=== PATIENT | female | born 1970 | race African-American/Black ===

== ENCOUNTER 2017-03-25 14:03 | Emergency (ER) | payer MEDICARE, MEDICAID ==
[~2017-03-25] VITALS: Ht 167.6 cm; Wt 104.3 kg
[2017-03-25 16:21] VITALS: BP 162/100
== END 2017-03-25 17:10 | disposition home or self-care (01) ==
LOC: ER 14:03
DX: L91.8 Other hypertrophic disorders of the skin (principal); E11.9 Type 2 diabetes mellitus without complications; Z88.0 Allergy status to penicillin
CPT/HCPCS: 11200; 82962

== ENCOUNTER 2018-09-19 08:52 | Emergency (ER) | payer MEDICARE, MEDICAID ==
[~2018-09-19] VITALS: Ht 167.6 cm; Wt 108.9 kg
[2018-09-19 09:04] VITALS: BP 161/84
== END 2018-09-19 10:13 | disposition home or self-care (01) ==
LOC: ER 08:52
DX: J02.9 Acute pharyngitis, unspecified (principal); H60.93 Unspecified otitis externa, bilateral; E11.9 Type 2 diabetes mellitus without complications; I10 Essential (primary) hypertension

== ENCOUNTER 2018-11-03 08:51 | Emergency (ER) | payer MEDICARE, MEDICAID ==
[~2018-11-03] VITALS: Ht 167.6 cm; Wt 108.9 kg
[2018-11-03 09:25] VITALS: BP 135/82
[2018-11-03] MEDS ORDERED: cefTRIAXone SOD 1,000 MG VL IM ONE (10:45)
== END 2018-11-03 11:08 | disposition home or self-care (01) ==
LOC: ER 08:51
DX: J20.9 Acute bronchitis, unspecified (principal); J03.90 Acute tonsillitis, unspecified; E11.9 Type 2 diabetes mellitus without complications; I10 Essential (primary) hypertension
CPT/HCPCS: 71046; 96372; 99283; A6257; J0696

== ENCOUNTER 2018-12-10 20:17 | Emergency (ER) | payer MEDICARE, MEDICAID ==
[~2018-12-10] VITALS: Ht 167.6 cm; Wt 108.9 kg
[2018-12-10 20:31] VITALS: BP 163/85
[2018-12-10] MEDS ORDERED: cefTRIAXone SOD 1,000 MG VL IM ONE (21:15)
[2018-12-10] MEDS ORDERED: ACETAMINOPHEN/CODEINE#3 (300/30mg) TAB PO ONE (21:15)
[2018-12-10] MEDS ORDERED: DexAMETHasone SOD PHOS 10MG/1ML VIAL INJ IM ONE (21:15)
== END 2018-12-10 21:54 | disposition home or self-care (01) ==
LOC: ER 20:17
DX: J06.9 Acute upper respiratory infection, unspecified (principal); J40 Bronchitis, not specified as acute or chronic; I10 Essential (primary) hypertension
CPT/HCPCS: 96372; 99283; J0696; J1100

== ENCOUNTER 2019-08-25 18:03 | Emergency (ER) | payer MEDICARE, MEDICAID ==
[~2019-08-25] VITALS: Ht 167.6 cm; Wt 108.9 kg
[2019-08-25 18:20] VITALS: BP 170/82
[2019-08-25] MEDS ORDERED: ACETAMINOPHEN/CODEINE#3 (300/30mg) TAB PO ONE (21:00)
[2019-08-25] MEDS ORDERED: DexAMETHasone SOD PHOS 10MG/1ML VIAL INJ IM ONE (21:00)
== END 2019-08-25 21:30 | disposition home or self-care (01) ==
LOC: ER 18:03
DX: J06.9 Acute upper respiratory infection, unspecified (principal); I10 Essential (primary) hypertension
CPT/HCPCS: 96372; 99283; J1100

== ENCOUNTER 2022-06-11 09:09 | Emergency (ER) | payer MEDICARE, MEDICAID ==
[~2022-06-11] VITALS: Ht 167.6 cm; Wt 110.0 kg
[2022-06-11] MEDS ORDERED: TRIA0.02 TOP (10:39)
[2022-06-11] MEDS ORDERED: METH750T22 PO (10:39)
[2022-06-11 10:49] VITALS: BP 147/96
== END 2022-06-11 10:41 | disposition home or self-care (01) ==
LOC: ER 09:09
DX: M77.32 Calcaneal spur, left foot (principal); I12.9 Hypertensive chronic kidney disease with stage 1 through stage 4 chronic kidney disease, or unspecified chronic kidney disease; N18.9 Chronic kidney disease, unspecified
CPT/HCPCS: 73630; 82962

== ENCOUNTER 2023-07-20 12:26 | Emergency (ER) | payer MEDICARE, MEDICAID ==
[~2023-07-20] VITALS: Ht 167.6 cm; Wt 106.7 kg
[~2023-07-20 12:26] MED LIST: METH-1182 PO; TRIA0.02 TOP
[2023-07-20 16:39] VITALS: BP 162/81; PULSE 100; RESP 18; TEMP 98.4; O2SAT 98
[2023-07-20] MEDS ORDERED: KETOROLAC TROMETH 60MG/2ML VIAL IM ONE (16:45)
[2023-07-20] MEDS ORDERED: DexAMETHasone SOD PHOS 10MG/1ML VIAL INJ PO ONE (16:45)
[2023-07-20] MEDS ORDERED: cefTRIAXone SOD 1,000 MG VL IM ONE (16:45)
[2023-07-20] MEDS ORDERED: PROM1SOL4 PO (17:07)
== END 2023-07-20 17:18 | disposition home or self-care (01) ==
LOC: ER 12:26
DX: J06.9 Acute upper respiratory infection, unspecified (principal); I12.9 Hypertensive chronic kidney disease with stage 1 through stage 4 chronic kidney disease, or unspecified chronic kidney disease; N18.9 Chronic kidney disease, unspecified; M19.90 Unspecified osteoarthritis, unspecified site; Z98.890 Other specified postprocedural states
CPT/HCPCS: 96372; 99284; J0696; J1100; J1885

== ENCOUNTER 2024-03-09 07:06 | Emergency (ER) | payer MEDICARE, MEDICAID ==
[~2024-03-09] VITALS: Ht 167.6 cm; Wt 106.3 kg
[~2024-03-09 07:06] MED LIST changes: +PROM1SOL4 PO
[2024-03-09] MEDS: IBUPROFEN 800 MG TAB PO ONE (08:06)
[2024-03-09 08:08] LABS: Urine Bacteria FEW /hpf (None Seen); Urine Blood 1+ /uL (Negative); Urine Clarity Turbid (Clear); Urine Color Colorless (Yellow); Urine Protein, UAD 1+ (Negative); Urine Specific Gravity 1.015 (1.001-1.035); Urine Urobilinogen Normal (Negative); Urine WBC 418 /hpf (0 - 5); Urine pH 5.5 (5.0-9.0)
[2024-03-09 08:10] LABS: Basophils # (auto) 0.1 10 ^3/uL (0-0.2); Basophils % (auto) 0.6 % (0.0-2.0); Eosinophils # (auto) 0 10 ^3/uL (0-0.8); Eosinophils % (auto) 0.4 % (0.0-7.0); Hematocrit 29.6 % (36.0-46.0); Lymphocytes # (auto) 0.6 10 ^3/uL (0.4-5.4); Lymphocytes % (auto) 6.1 % (10.0-50.0); Mean Corpuscular Hemoglobin 30.3 pg (28.0-32.0); Mean Corpuscular Hgb Conc. 33.8 g/dL (32.0-36.0); Mean Corpuscular Volume 89.7 fL (80.0-100.0); Monocytes # (auto) 0.5 10 ^3/uL (0-1.3); Monocytes % (auto) 4.9 % (0.0-12.0); Neutrophils # (auto) 8.6 10 ^3/uL (1.6-8.6); Red Cell Distribution Width 15.2 % (11.8-14.3); White Blood Cell 9.8 10^3/uL (4.4-10.8)
[2024-03-09 08:17] LABS: Chloride 111 mmol/L (98-107); Potassium 4.9 mmol/L (3.5-5.1); Sodium 140 mmol/L (136-145)
[2024-03-09 08:18] LABS: Anion Gap 8 (5-15); Calcium 9.9 mg/dL (8.7-10.4); Carbon Dioxide 21 mmol/L (20-30)
[2024-03-09 08:23] LABS: BUN/Creatinine Ratio 15.9 (10.0-20.0); Blood Urea Nitrogen 30 mg/dL (9-23); Glucose 188 mg/dL (74-106)
[2024-03-09] MEDS: SODIUM CHLORIDE 0.9% 1,000 ML IV ONE ×2 (08:54→09:04)
[2024-03-09] MEDS: cefTRIAXone 1GM/50ML D5W 50 ML IV ONE (09:02)
[2024-03-09 09:45] VITALS: BP 111/59; PULSE 92; RESP 16; O2SAT 96
[2024-03-09] MEDS ORDERED: CIPR-173 PO (10:00)
[2024-03-09] MEDS ORDERED: ACET-1080 PO (10:00)
[2024-03-09 10:12] VITALS: TEMP 99.3
== END 2024-03-09 10:35 | disposition home or self-care (01) ==
LOC: ER 07:06
DX: N39.0 Urinary tract infection, site not specified (principal); N10 Acute pyelonephritis; E11.22 Type 2 diabetes mellitus with diabetic chronic kidney disease; I12.9 Hypertensive chronic kidney disease with stage 1 through stage 4 chronic kidney disease, or unspecified chronic kidney disease; N18.9 Chronic kidney disease, unspecified; Z90.49 Acquired absence of other specified parts of digestive tract; Z87.442 Personal history of urinary calculi
CPT/HCPCS: 36415; 74176; 80048; 81001; 85025; 87086; 96365; 99285; J0696; J7030

== ENCOUNTER 2024-07-20 18:04 | Inpatient (IN) | payer MEDICARE, MEDICAID ==
[~2024-07-20] VITALS: Ht 167.6 cm; Wt 115.2 kg
[~2024-07-20 18:04] MED LIST changes: +ACET-1080 PO; +CIPR-173 PO
--- NOTE | 2024-07-20 18:23 | ECG ---
[facility] Test Date: 2024-07-20 Test Time: 18:14:25 Pat Name: MIGUEL ANGEL VARGAS Department: ER Room: [address] [place] [address] Gender: F Fountain Supervisor: MANAV : 1970 Requested By: KARIN BURR Order Number: [id number] Reading MD: Chucky Nelson Measurements Intervals [place] Rate: 78 P: 53 OR: 154 QRS: 10 QRSD: 100 T: 31 QT: 411 QTc: 469 Interpretive Statements Sinus rhythm Low voltage, precordial leads Electronically Signed On 07-26-2024 13:35:43 PST by Chucky Nelson Please click the below link to view image of tracing.
--- NOTE | 2024-07-20 18:33 | ED.PDOC ---
GI ASSESSMENT HPI Comments 53y F who presents to the ED via EMS for chief complaint of abdominal pain. Pt states she has been having abdominal since the past 1 1/2 hours since after she was eating dinner. Pt states her pain in epigastric location radiating to the lower pelvic region diffusely, constant, aching in nature, rating the pain 10/10, with no associated relieving factors. Pt has associated nausea, vomiting chills, but denies fever, cough, dysuria, hematuria or hematemesis, headache or dizziness. Pt otherwise noted to be in distress in the ED. Pt was given Zofran en route with no change in symptoms. Pt denies any other symptoms at this time. Chief Complaint: Abdominal Pain Time Seen by MD: 18:29 Primary Care Provider: YEHUDA Munoz Notes: Nurses Notes, System Integration Engineer Notes, Medications Allergies: Coded Allergies: NO KNOWN ALLERGIES (Unverified , 12/10/18) Home Meds Active Scripts Acetaminophen (Tylenol 8 Hour Arthritis) 650 Mg Tab, 650 MG PO QID, #30 TAB Prov:RIA FELTON 03/09/24 Ciprofloxacin Hcl (Cipro) 500 Mg Tab, 1 TAB PO BID, #20 TAB Prov:RIA FELTON 03/09/24 Promethazine-Dm (Promethazine Dm 6.25-15 mg/5Ml) 1 Jil Jil, 5 ML PO TID for 10 Days, #150 ML 0 Refills Prov:SAMIRA MORALES TOE SEWER 07/20/23 Triamcinolone Acetonide (Triamcinolone Acetonide) 0.025 % Cre, 1 APPLIC TOP BID, #30 GRAMS Prov:RIA FELTON 06/11/22 Methocarbamol (Methocarbamol) 750 Mg Tab, 750 MG PO QHSP PRN, #20 TAB Prov:RIA FELTON 06/11/22 Information Source: Patient, Emergency Med Personnel Mode of Arrival: EMS Brought in by: EMS Timing: Hours Duration: Since onset Prehospital treatment: Treatment (zofran) Quality: Aching, Sharp Vomitus: Food Particles Stool: Normal Severity: Moderate Recent: Possible spoiled food Recent Hx of: None Pain Location: Epigastric, Suprapubic Modifying Factors: Food Associated sign and symptoms: Nausea, Vomiting, Abdominal Pain Past Medical History PAST MEDICAL HISTORY: Arthritis, CKF, DM, HTN, Kidney Stones Surgical History: Cholecystectomy, Surgical History (Other): b/l hip replacement TELECOM FIELD TECHNICIAN History: No Pertinent TELECOM FIELD TECHNICIAN History Family History Family History: Family hx of DM, Family hx of heart bk Social History Smoker: Non-Smoker Alcohol: Denies ETOH Use Drugs: Denies Drug Use Lives In: Home Constitutional: reports: chills, weakness; denies: diaphoresis, fatigue, fever, malaise, sweats, others EENTM: denies: blurred vision, double vision, ear bleeding, ear discharge, ear drainage, ear pain, ear ringing, eye pain, eye redness, hearing loss, mouth pain, mouth swelling, nasal discharge, nose bleeding, nose congestion, nose pain, photophobia, tearing, throat pain, throat swelling, voice changes, others Respiratory: denies: cough, hemoptysis, orthopnea, SOB at rest, shortness of breath, SOB with excertion, stridor, wheezing, others Cardiovascular: denies: chest pain, dizzy spells, diaphoresis, Dyspnea on exertion, edema, irregular heart beat, left arm pain, lightheadedness, palpitations, PND, syncope, others Gastrointestinal: reports: abdominal pain, nausea, vomiting; denies: abdomen distended, blood streaked bowels, constipated, diarrhea, dysphagia, difficulty swallowing, hematemesis, melena, poor appetite, poor fluid intake, rectal bleeding, rectal pain, others Genitourinary: denies: abnormal vagina bleeding, burning, dyspareunia, dysuria, flank pain, frequency, hematuria, incontinence, pain, , vagina discharge, urgency, others Neurological: denies: dizziness, fainting, headache, left sided numbness, left sided weakness, numbness, paresthesia, pre-existing deficit, right sided numbness, right sided weakness, seizure, speech problems, tingling, tremors, weakness, others Musculoskeletal: denies: back pain, gout, joint pain, joint swelling, muscle pain, muscle stiffness, neck pain, others Integumetry: denies: bruises, change in color, change in hair/nails, dryness, laceration, lesions, lumps, rash, wounds, others Allergic/Immunocompromised: denies: Difficulty Healing, Frequent Infections, Hives, Itching, others Hematologic/Lymphatic: denies: anemia, blood clots, easy bleeding, easy bruisi ng, swollen glands, others Endocrine: denies: excessive hunger, excessive sweating, excessive thirst, exce ssive urination, flushing, intolerance to cold, intolerance to heat, unexplained weight gain, unexplained weight loss, others Psychiatric: denies: anxiety, bipolar disorder, depression, hopeless, panic disorder, schizophrenia, sleepless, suicidal, others All Other Systems: Reviewed and Negative Physical Exam General Appearance: Moderate Distress HEENT: Normal ENT Inspection, Pharynx Normal, TMs Normal Neck: Full Range of Motion, Non-Tender, Normal, Normal Inspection Respiratory: Chest Non-Tender, Lungs Clear, No Accessory Muscle Use, No Respiratory Distress, Normal Breath Sounds Cardiovascular: No Edema, No JVD, No Murmur, No Gallop, Normal Peripheral Pulses, Regular Rate/Rhythm Breast Exam: Deferred Gastrointestinal: Diffuse, No Organomegaly, No Pulsatile Mass, Normal Bowel Sounds, Soft, Tenderness Genitalia: Deferred Pelvic: Deferred Rectal: Deferred Extremities: No calf tenderness, Normal capillary refill, No pedal edema Musculoskeletal : Apperance: Normal Neurologic: Alert, public health analyst II-XII nml as Tested, Motor Weakness, Normal Affect, Normal Mood, No Sensory Deficits Cerebellar Function: Normal Reflexes: Normal Skin: Dry, Normal Color, Warm Lymphatic: No Adenopathy Was a procedure done? Was a procedure done?: No GI differential Dx Differential Diagnosis: Esophagitis, Gastritis/PUD, Gastroenteritis, Pancreatitis, UTI, Urolithiasis, Food Poisoning, Stress Ulcer, Kidney Stone X-Ray, Labs, Meds, VS Vital Signs Date Time Temp Pulse Resp B/P (MAP) Pulse Ox O2 Delivery O2 Flow Rate FiO2 07/20/24 18:14 78 07/20/24 18:10 98.3 82 20 121/94 (103) 98 Lab Test 07/20/24 19:17 Range/Units White Blood Count 17.4 H 4.4-10.8 10^3/uL Red Blood Count 3.75 L 4.0-5.20 10^6/uL Hemoglobin 10.8 L 12.2-16.2 g/dL Hematocrit 33.6 L 36.0-46.0 % Mean Corpuscular Volume 89.5 80.0-100.0 fL Mean Corpuscular Hemoglobin 28.9 28.0-32.0 pg Mean Corpuscular Hemoglobin Concent 32.3 32.0-36.0 g/dL Red Cell Distribution Width 14.5 H 11.8-14.3 % Platelet Count 332 140-450 10^3/uL Mean Platelet Volume 7.3 6.9-10.8 fL Neutrophils (%) (Auto) 89.6 H 37.0-80.0 % Lymphocytes (%) (Auto) 6.6 L 10.0-50.0 % Monocytes (%) (Auto) 3.1 0.0-12.0 % Eosinophils (%) (Auto) 0.3 0.0-7.0 % Basophils (%) (Auto) 0.4 0.0-2.0 % Neutrophils # (Auto) 15.6 H 1.6-8.6 10 ^3/uL Lymphocytes # (Auto) 1.1 0.4-5.4 10 ^3/uL Monocytes # (Auto) 0.5 0-1.3 10 ^3/uL Eosinophils # (Auto) 0.1 0-0.8 10 ^3/uL Basophils # (Auto) 0.1 0-0.2 10 ^3/uL Nucleated Red Blood Cells 0.0 % Sodium Level 141 136-145 mmol/L Potassium Level 4.4 3.5-5.1 mmol/L Chloride Level 106 98-107 mmol/L Carbon Dioxide Level 21 20-31 mmol/L Anion Gap 14 5-15 Blood Urea Nitrogen 31 H 9-23 mg/dL Creatinine 1.88 H 0.550-1.02 mg/dL Glomerular Filtration Rate Calc 32 >90 mL/min BUN/Creatinine Ratio 16.5 10.0-20.0 Serum Glucose 214 H 74-106 mg/dL Calcium Level 10.8 H 8.7-10.4 mg/dL Total Bilirubin 0.4 0.2-1.0 mg/dL Aspartate Amino Transferase (AST) 14 13-40 U/L Alanine Aminotransferase (ALT) 19 7-40 U/L Alkaline Phosphatase 83 46-116 U/L Total Protein 7.9 5.7-8.2 g/dL Albumin 5.2 H 3.2-4.8 g/dL Lipase 46 12-53 U/L Exam: CT CT AB PEL WO CON-NO ORAL OR IV IMPRESSION: No evidence of acute abdominopelvic abnormalities. Constipation. Severe degenerative changes of bilateral hips. Large fat containing umbilical hernia. The patient's CBC shows an elevated white blood cell count of 17.4 The rest of the CBC is within limits The chemistry panel shows an elevated BUN and creatinine At this time, the patient was being admitted hospitalist Images Reviewed?: Images reviewed and evaluated by me Time of 1ST Reevaluation: 19:00 Reevaluation 1ST: Unchanged Time of 2ND Reevaluation: 20:00 Reevaluation 2ND: Unchanged Patient Education/Counseling: Diagnosis, Treatment, Prognosis Family Education/Counseling: No Family Present Departure 1 Departure Time of Disposition: 20:00 Impression: Primary Impression: Intractable abdominal pain Additional Impression: Intractable vomiting Disposition: ADMITTED INPATIENT Admit to: Med Surg Condition: Fair Critical Care Note Critical Care Time?: No Stability Stability form required: Yes Unstable for transfer: ED Physician Assesment (Clinical assesment) Heart Score Heart Score: Heart Score Response (Comments) Value History N/A 0 EKG N/A 0 Age N/A 0 Risk Factors N/A 0 Troponin N/A 0 Total 0 I personally scribed for KARIN BURR MD ([email or web address]) on 07/20/24 at 18:32. Electronically submitted by Jazzy Bertrand ([email or web address] ([email or web address])). I personally scribed for KARIN BURR MD ([email or web address]) on 07/20/24 at 19:10. Electronically submitted by Jazzy Berrtand ([email or web address]). KARIN BURR MD Jul 20, 2024 18:32
--- NOTE | 2024-07-20 19:08 | DVH ---
Exam: CT CT AB PEL WO CON-NO ORAL OR IV History: pain Comparison Study: 03/09/2024 TECHNIQUE: Multidetector CT of the abdomen and pelvis without contrast. Axial, coronal and sagittal m ultiplanar reformats were obtained from the axial data set by the technologist. Radiation Dose Information: CT Dose: CTDI volume is 24.43 mGy. Dose-length product is 1442.01 mGy*cm FINDINGS: Bibasilar atelectasis. Mild cardiomegaly. Mild hepatomegaly. Otherwise, liver, spleen, pancreas and adrenal glands are unremarkable. Status po st cholecystectomy. Kidneys, ureters and urinary bladder are unremarkable. Uterus and adnexa are unremarkable. Stomach is unremarkable. Small bowel loops unremarkable. Appendix is unremarkable. Moderate 2 large amount of fecal material within the colon. No evidence of intraperitoneal free air or free fluid. No evidence of aortic aneurysm. [id number] atherosclerotic calcification of the distal aorta an d bilateral iliac arteries. No significant lymphadenopathy. Minimal soft tissue edema. Large fat containing umbilical hernia. Severe degenerative changes bilate ral hips with chronic fracture deformity of the right hip. Calcified granulomas of the bilateral glu teal regions. IMPRESSION: No evidence of acute abdominopelvic abnormalities. Constipation. Severe degenerative changes of bilateral hips. Large fat containing umbilical hernia.
[2024-07-20 19:26] LABS: Basophils # (auto) 0.1 10 ^3/uL (0-0.2); Basophils % (auto) 0.4 % (0.0-2.0); Eosinophils # (auto) 0.1 10 ^3/uL (0-0.8); Eosinophils % (auto) 0.3 % (0.0-7.0); Hematocrit 33.6 % (36.0-46.0); Hemoglobin 10.8 g/dL (12.2-16.2); Lymphocytes # (auto) 1.1 10 ^3/uL (0.4-5.4); Lymphocytes % (auto) 6.6 % (10.0-50.0); Mean Corpuscular Hemoglobin 28.9 pg (28.0-32.0); Mean Corpuscular Hgb Conc. 32.3 g/dL (32.0-36.0); Mean Corpuscular Volume 89.5 fL (80.0-100.0); Monocytes # (auto) 0.5 10 ^3/uL (0-1.3); Monocytes % (auto) 3.1 % (0.0-12.0); Neutrophils # (auto) 15.6 10 ^3/uL (1.6-8.6); Neutrophils % (auto) 89.6 % (37.0-80.0); Platelet Count (auto) 332 10^3/uL (140-450); Red Blood Cells 3.75 10^6/uL (4.0-5.20); Red Cell Distribution Width 14.5 % (11.8-14.3); White Blood Cell 17.4 10^3/uL (4.4-10.8)
[2024-07-20 19:50] LABS: Alanine Aminotransferase 19 U/L (7-40); Alkaline Phosphatase 83 U/L (46-116); Anion Gap 14 (5-15); Aspartate Aminotransferase 14 U/L (13-40); BUN/Creatinine Ratio 16.5 (10.0-20.0); Bilirubin, Total 0.4 mg/dL (0.2-1.0); Carbon Dioxide 21 mmol/L (20-31); Chloride 106 mmol/L (98-107); Lipase 46 U/L (12-53); Potassium 4.4 mmol/L (3.5-5.1); Sodium 141 mmol/L (136-145); Total Protein 7.9 g/dL (5.7-8.2)
[2024-07-20 19:55] LABS: Albumin 5.2 g/dL (3.2-4.8); Blood Urea Nitrogen 31 mg/dL (9-23); Calcium 10.8 mg/dL (8.7-10.4); Glucose 214 mg/dL (74-106)
[2024-07-20] MEDS: MORPHINE SULFATE 4 MG/ML SYR/VIAL IV ONE (20:14)
[2024-07-20] MEDS: PROCHLORPERAZINE EDISYLATE 5 MG/ML 2ML VIAL IV ONE (20:15)
[2024-07-20] MEDS: SODIUM CHLORIDE 0.9% 500 ML IVB ONE (20:16)
[2024-07-20] MEDS: PANTOPRAZOLE 40 MG/10 ML VIAL INJ IV ONE (20:16)
[2024-07-20] MEDS ORDERED: ACETAMINOPHEN 325 MG TAB PO PRN (21:00)
[2024-07-20] MEDS ORDERED: DOCUSATE SOD 100 MG CAP PO PRN (21:00)
[2024-07-20] MEDS ORDERED: NITROGLYCERIN 0.4 MG SL TAB SL PRN (21:00)
[2024-07-20] MEDS ORDERED: MORPHINE SULFATE INJ 2 MG/ml SYRG IV PRN (21:00)
[2024-07-20] MEDS ORDERED: LACTULOSE 20Gm/30ML SOLN PO PRN (21:00)
[2024-07-20 21:30] LABS: Urine Bacteria None Seen /hpf (None Seen)
[2024-07-20] MEDS: SODIUM CHLOR 0.9% PF (SALINE LOCK) 10ML VIAL/SYR IV SCH (21:51)
[2024-07-20 22:21] LABS: Urine Blood Negative /uL (Negative); Urine Clarity Clear (Clear); Urine Color Yellow (Yellow); Urine Hyaline Cast FEW /lpf (0 - 2); Urine Protein, UAD Negative (Negative); Urine Specific Gravity 1.019 (1.001-1.035); Urine Urobilinogen Normal (Negative); Urine WBC 1 /hpf (0 - 5); Urine pH 5.5 (5.0-9.0)
--- NOTE | 2024-07-20 23:12 | DVHHPRES ---
History of Present Illness Resident Creating Document: ESTHER TAVERAS RESIDENT History of Present Illness Patient is 52 years old female with past medical history of hypertension, diabetes mellitus type 2, arthritis, CKD came with a complaint of abdominal pain. As per patient patient ate some seafood outside and started having severe crampy abdominal pain in the afternoon after around 5:00 p.m. today. Pain was 8/10, no radiation, no aggravating or relieving factor. Patient also reported having nausea and vomiting twice mainly food content, no blood. Patient also reported feeling some chills. Patient denied any dysuria, chest pain, shortness of breath, constipation or diarrhea. Initial lab workup revealed leukocytosis WBC 17.4, mild anemia hemoglobin 10.8, elevated creatinine 1.88, BUN 31, blood sugar 214. CT abdomen revealed-No evidence of acute abdominopelvic abnormalities. Constipation. Severe degenerative changes of bilateral hips. Large fat containing umbilical hernia. Past Medical History hypertension, diabetes mellitus type 2, arthritis, CKD Past Surgical History Cholecystectomy, Past Social History Denies smoking/alcoholism/drug abuse, lives with the and son Review of Systems Review of Systems Allergy- NKDA Patient was seen today at the bedside. Cardiovascular- deny acute chest pain or shortness of breath or cough or palpitation Respiratory- denies cough or short of breath or wheezing Gastrointestinal- denies any rectal bleeding, Musculoskeletal-denies acute joint swelling or tenderness or redness Neurological- denies acute dysarthria, dysphagia, change in vision Psychiatry- denies depression or SI or HI Skin- denies acute rash or purpura Allergies: Coded Allergies: NO KNOWN ALLERGIES (Unverified , 12/10/18) Medications Current Medications Medications Dose Ordered Sig/Brittney Route Start Time Stop Time Status Last Admin Dose Admin Sodium Chloride 10 ml Q8HR IV 07/20/24 22:00 07/20/24 21:51 10 ML Ondansetron HCl 4 mg Q4HP PRN IV 07/20/24 21:00 Docusate Sodium 100 mg BIDPRN PRN PO 07/20/24 21:00 Acetaminophen 650 mg Q6HP PRN PO 07/20/24 21:00 Morphine Sulfate 2 mg Q4HPRN PRN IV 07/20/24 21:00 Nitroglycerin 0.4 mg Q5MINP PRN SL 07/20/24 21:00 Morphine Sulfate 2 mg Q30M PRN IV 07/20/24 21:00 Lactulose 30 ml Q6HPRN PRN PO 07/20/24 21:00 Exam Vital Signs Vital Signs Date Time Temp Pulse Resp B/P (MAP) Pulse Ox O2 Delivery O2 Flow Rate FiO2 07/20/24 20:44 88 19 148/76 07/20/24 18:10 98.3 98 Exam General examination- awake, alert, oriented, conversant HEENT- PEERLA, no acute nasal discharge Cardiovascular- S1-S2 audible, rate and rhythm regular, no murmur Respiratory- CTAB, no wheeze or rhonchi Gastrointestinal-tenderness+, bowel sound+. Nondistended Musculoskeletal-no acute joint swelling or tenderness or redness# Lower extremity- no leg edema Neurological- cranial nerves intact, no acute dysarthria or dysphagia Psychiatry- denies depression or SI or HI Skin- no acute rash or purpura Labs/Xrays Labs Test 07/20/24 21:16 07/20/24 19:17 Range/Units Urine Color Yellow Yellow Urine Clarity Clear Clear Urine pH 5.5 5.0-9.0 Urine Specific [place] 1.019 1.001-1.035 Urine Protein Negative Negative Urine Ketones Negative Negative Urine Blood Negative Negative /uL Urine Nitrite Negative Negative Urine Bilirubin Negative Negative Urine Urobilinogen Normal Negative mg/dL Urine Leukocyte Esterase Negative Negative /uL Urine RBC 3 0 - 4 /hpf Urine WBC 1 0 - 5 /hpf Urine Squamous Epithelial Cells Few <5 /hpf Urine Bacteria None seen None Seen /hpf Urine Hyaline Casts Few 0 - 2 /lpf Urine Glucose Normal Normal mg/dL White Blood Count 17.4 H 4.4-10.8 10^3/uL Red Blood Count 3.75 L 4.0-5.20 10^6/uL Hemoglobin 10.8 L 12.2-16.2 g/dL Hematocrit 33.6 L 36.0-46.0 % Mean Corpuscular Volume 89.5 80.0-100.0 fL Mean Corpuscular Hemoglobin 28.9 28.0-32.0 pg Mean Corpuscular Hemoglobin Concent 32.3 32.0-36.0 g/dL Red Cell Distribution Width 14.5 H 11.8-14.3 % Platelet Count 332 140-450 10^3/uL Mean Platelet Volume 7.3 6.9-10.8 fL Neutrophils (%) (Auto) 89.6 H 37.0-80.0 % Lymphocytes (%) (Auto) 6.6 L 10.0-50.0 % Monocytes (%) (Auto) 3.1 0.0-12.0 % Eosinophils (%) (Auto) 0.3 0.0-7.0 % Basophils (%) (Auto) 0.4 0.0-2.0 % Neutrophils # (Auto) 15.6 H 1.6-8.6 10 ^3/uL Lymphocytes # (Auto) 1.1 0.4-5.4 10 ^3/uL Monocytes # (Auto) 0.5 0-1.3 10 ^3/uL Eosinophils # (Auto) 0.1 0-0.8 10 ^3/uL Basophils # (Auto) 0.1 0-0.2 10 ^3/uL Nucleated Red Blood Cells 0.0 % Sodium Level 141 136-145 mmol/L Potassium Level 4.4 3.5-5.1 mmol/L Chloride Level 106 98-107 mmol/L Carbon Dioxide Level 21 20-31 mmol/L Anion Gap 14 5-15 Blood Urea Nitrogen 31 H 9-23 mg/dL Creatinine 1.88 H 0.550-1.02 mg/dL Glomerular Filtration Rate Calc 32 >90 mL/min BUN/Creatinine Ratio 16.5 10.0-20.0 Serum Glucose 214 H 74-106 mg/dL Calcium Level 10.8 H 8.7-10.4 mg/dL Total Bilirubin 0.4 0.2-1.0 mg/dL Aspartate Amino Transferase (AST) 14 13-40 U/L Alanine Aminotransferase (ALT) 19 7-40 U/L Alkaline Phosphatase 83 46-116 U/L Total Protein 7.9 5.7-8.2 g/dL Albumin 5.2 H 3.2-4.8 g/dL Lipase 46 12-53 U/L Assessment/Plan Assessment/Plan # acute abdominal pain likely due to acute gastroenteritis/colitis -leukocytosis WBC 17.4 -continue ceftriaxone 1 g IV daily -continue metronidazole 500 mg IV q.8h -continue IV fluid as prescribed # suspected acute gastroenteritis -abdominal pain, nausea, vomiting --leukocytosis WBC 17.4 -continue ceftriaxone 1 g IV daily -continue metronidazole 500 mg IV q.8h -continue IV fluid as prescribed # CKD stage IIIB, no FELIBERTO -avoid dehydration and nephrotoxic drugs # hypertension -IV hydralazine 10 mg q.6h p.r.n. -monitor BP # diabetes mellitus type 2 -pending HGB A1c -continue insulin sliding scale as prescribed #Arthritis -pain medication as prescribed # obesity, BMI 38.8 -patient is counseled about weight reduction, physical activity, low-fat diet # elevated calcium -continue IV fluid as prescribed Goals of care/advance care planning; FULL CODE; discussed with the patient >15 minutes PUD prophylaxis: Pantoprazole DVT prophylaxis: Lovenox Plan discussed with Dr. Bearden, nursing staff, patient Total time spent on patient evaluation, chart review, assessment and plan, discussion discussion >30 minutes Plan discussed with: Patient Plan discussed with: Patient, Other (RN) My Orders Orders - ESTHER TAVERAS RESIDENT Procedure Category Date Status Time Admit ADMIT 07/20/24 Transmitted 20:46 Code Status CODE 07/20/24 Transmitted 20:46 Sodium Chloride Lock PHA 07/20/24 In Process (Saline Lock Ns) 22:00 Ondansetron Hcl PHA 07/20/24 In Process (Zofran) 21:00 Docusate Sodium PHA 07/20/24 In Process Capsule (Colace 21:00 Complete Blood Count LAB 07/21/24 Verified 04:00 Comprehensive LAB 07/21/24 Verified Metabolic Panel 04:00 Acetaminophen Tablet PHA 07/20/24 In Process (Tylenol Tablet) 21:00 Morphine Sulfate PHA 07/20/24 In Process Injection 21:00 Nitroglycerin PHA 07/20/24 In Process Sublingual (Ntrostat 21:00 Morphine Sulfate PHA 07/20/24 In Process Injection 21:00 Oxygen By Nasal RT 07/20/24 Transmitted Cannula 20:46 Stat Ekg For Chest JAC 07/20/24 In Process Pain 20:46 Notify Of Changes JAC 07/20/24 In Process From Base 20:46 Resident Care Aide For JAC 07/20/24 In Process 24 Hours 20:46 Emergency Dysrhythmia JAC 07/20/24 In Process Protocol 20:46 Rhythm Strips Once JAC 07/20/24 In Process Every Shift 20:46 Lactulose Oral PHA 07/20/24 In Process 21:00 Date of Service: Jul 20, 2024 Billing Provider: OBDULIA BEARDEN MD Common Visit Codes: [id number] INP/OBS CARE (HIGH) ESTHER TAVERAS RESIDENT Jul 20, 2024 23:12 OBDULIA BEARDEN MD Jul 21, 2024 08:02
[2024-07-20 23:37] VITALS: BP 159/99; PULSE 108; RESP 18; TEMP 98.7; O2SAT 98
[2024-07-21] VITALS (9 sets, daily range): BP systolic 105–159; BP diastolic 64–99; PULSE 70–109; RESP 16–20; TEMP 98.2–99.7; O2SAT 87–98
[2024-07-21] MEDS: metroNIDAZOLE 500MG/100ML 100 ML IV ONE (00:15)
[2024-07-21] MEDS: SODIUM CHLORIDE 0.9% 1,000 ML IV SCH ×2 (00:16→03:30)
[2024-07-21] MEDS: cefTRIAXone 1GM/50ML D5W 50 ML IV ONE (00:16)
[2024-07-21] MEDS: SODIUM CHLORIDE 0.9% 500 ML IV ONE (00:17)
[2024-07-21] MEDS: MORPHINE SULFATE INJ 2 MG/ml SYRG IV PRN (00:47)
[2024-07-21] MEDS: ONDANSETRON HCL 4 MG/2 ML VIAL IV PRN (00:54)
[2024-07-21] MEDS ORDERED: DEXTROSE (50%) 50ML SYRG IV PRN (01:45)
[2024-07-21] MEDS: ENOXAPARIN SOD 40 MG/0.4 ML SYRINGE SC SCH (02:00)
[2024-07-21] MEDS: LACTULOSE 20Gm/30ML SOLN PO ONE (03:19)
[2024-07-21] MEDS: ENOXAPARIN SOD 40 MG/0.4 ML SYRINGE SC ONE (03:21)
[2024-07-21 06:02] LABS: Basophils # (auto) 0 10 ^3/uL (0-0.2); Basophils % (auto) 0.2 % (0.0-2.0); Eosinophils # (auto) 0 10 ^3/uL (0-0.8); Eosinophils % (auto) 0.1 % (0.0-7.0); Hematocrit 29.2 % (36.0-46.0); Hemoglobin 9.5 g/dL (12.2-16.2); Lymphocytes # (auto) 0.9 10 ^3/uL (0.4-5.4); Lymphocytes % (auto) 6.1 % (10.0-50.0); Mean Corpuscular Hemoglobin 29.1 pg (28.0-32.0); Mean Corpuscular Hgb Conc. 32.7 g/dL (32.0-36.0); Mean Corpuscular Volume 88.9 fL (80.0-100.0); Monocytes # (auto) 0.5 10 ^3/uL (0-1.3); Monocytes % (auto) 3.3 % (0.0-12.0); Neutrophils # (auto) 12.8 10 ^3/uL (1.6-8.6); Neutrophils % (auto) 90.3 % (37.0-80.0); Platelet Count (auto) 272 10^3/uL (140-450); Red Blood Cells 3.28 10^6/uL (4.0-5.20); Red Cell Distribution Width 14.2 % (11.8-14.3); White Blood Cell 14.2 10^3/uL (4.4-10.8)
[2024-07-21] MEDS: ACCU-CHEK COMFORT CURVE STRIP VI SCH (06:12)
[2024-07-21] MEDS: metroNIDAZOLE 500MG/100ML 100 ML IV SCH (06:12)
[2024-07-21 06:26] LABS: Alanine Aminotransferase 16 U/L (7-40); Albumin 4.7 g/dL (3.2-4.8); Alkaline Phosphatase 73 U/L (46-116); Anion Gap 14 (5-15); Aspartate Aminotransferase 12 U/L (13-40); BUN/Creatinine Ratio 18.2 (10.0-20.0); Bilirubin, Total 0.5 mg/dL (0.2-1.0); Blood Urea Nitrogen 27 mg/dL (9-23); Calcium 10.2 mg/dL (8.7-10.4); Carbon Dioxide 20 mmol/L (20-31); Chloride 107 mmol/L (98-107); Glucose 175 mg/dL (74-106); Magnesium 1.7 mg/dL (1.6-2.6); Potassium 4.7 mmol/L (3.5-5.1); Sodium 141 mmol/L (136-145); Total Protein 7.1 g/dL (5.7-8.2)
[2024-07-21] MEDS: InsuLIN REG 1unit/0.01ml Soln (100units/ml) SC SCH (06:28)
[2024-07-21] MEDS ORDERED: LACTULOSE 20Gm/30ML SOLN PO PRN (06:30)
[2024-07-21] MEDS: PANTOPRAZOLE 40 MG/10 ML VIAL INJ IV SCH (08:40)
[2024-07-21] MEDS: PROCHLORPERAZINE EDISYLATE 5 MG/ML 2ML VIAL IV PRN (08:41)
--- NOTE | 2024-07-21 10:48 | DVHPNRES ---
Progress Note Date Seen: Jul 21, 2024 Resident Creating Document: LOVE JARRELLNARCISO RESIDENT Medical Necessity Reason Pt with a Central, PICC or Fol: No Subjective Review of Systems Patient is a 53 yo male with a past medical history of T2DM, HTN, osteoarthritis of the hip presented to the ED with chief complaint Acute abdominal pain, nausea and vomiting for a few hours before presentation. patient reported that she was at a family gathering and had food following which after about 1-1.5 hrs he started having shaking, diffuse abdominal pain with nausea and vomiting. reported eating turkey, shrimps made at home. patient reports about 3-4 episodes vomiting which mostly had undigested food she ate, no blood in vomitus, last 2 episodes of vomting were yellowish in color. patient does not report of fever, diarrhoea, rash, no motor or sensory deficiets. Patient on admission had stable vitals with blood pressure and heart rate WNL. CBC showed elevated WBC count with left shjft and BMP showed Increased creatine with acutely low GFR. CT abdomen pelvis without contrast was done which showed No evidence of acute abdominopelvic abnormalities.Constipation.Severe degenerative changes of bilateral hips.Large fat containing umbilical hernia. Past medical history : as per HPI Past surgical history: Cholecystectomy, Social history: Lives with the family and denies smoking, alcohol, drug use Home medications: Tradjenta 5mg daily, losartan 100 mg qd, hydralazine 50 bid, insulin 30 U hs Review of systems Patient seen and examined at the bedside. Patient alert and oriented x4. Patient reported diffuse crampy abdominal pain severe 7/10 intensity, nausea with dry heaving. Vitals - BP stable, pulse regular rate and rhythm. passed stool, regular in consistency, no gross blood in stool. Stool sent for culture, WBC and stool occult blood. WBC came down and serum creatinine coming down. Objective vital signs Vital Sign Date Time Temp Pulse Resp B/P (MAP) Pulse Ox O2 Delivery O2 Flow Rate FiO2 07/21/24 09:00 99.1 97 20 126/66 (86) 87 99.1 07/21/24 01:46 Room Air* 0 21 Total Intake and Output 07/20/24 07/20/24 07/21/24 15:00 23:00 07:00 Intake Total 600 ml Output Total 200 ml Balance 400 ml medications Current Medications Medications Dose Ordered Sig/Brittney Route Start Time Stop Time Status Last Admin Dose Admin Sodium Chloride 10 ml Q8HR IV 07/20/24 22:00 07/21/24 05:38 10 ML Ondansetron HCl 4 mg Q4HP PRN IV 07/20/24 21:00 07/21/24 00:54 4 MG Docusate Sodium 100 mg BIDPRN PRN PO 07/20/24 21:00 Acetaminophen 650 mg Q6HP PRN PO 07/20/24 21:00 Morphine Sulfate 2 mg Q4HPRN PRN IV 07/20/24 21:00 07/21/24 04:26 2 MG Nitroglycerin 0.4 mg Q5MINP PRN SL 07/20/24 21:00 Morphine Sulfate 2 mg Q30M PRN IV 07/20/24 21:00 Ceftriaxone Sodium 50 ml @ 100 mls/hr DAILY@2300 IV 07/21/24 23:00 Metronidazole 100 ml @ 100 mls/hr Q8H IV 07/21/24 07:00 07/21/24 06:12 100 MLS/HR Pantoprazole Sodium 40 mg DAILY IV 07/21/24 10:00 07/21/24 08:40 40 MG Diagnostic Test (Pha) 1 strip ACHS 07/21/24 07:00 07/21/24 06:12 1 STRIP Insulin Human Regular ACHS SC 07/21/24 07:00 07/21/24 06:28 3 UNITS Dextrose 50 ml UD PRN IV 07/21/24 01:45 Enoxaparin Sodium 40 mg DAILY@0200 SC 07/21/24 02:00 Sodium Chloride 1,000 ml @ 120 mls/hr Q8H20M IV 07/21/24 01:45 07/21/24 03:30 120 MLS/HR Lactulose 30 ml DAILY PRN PO 07/21/24 06:30 Prochlorperazine Edisylate 10 mg Q6HP PRN IV 07/21/24 07:15 07/21/24 08:41 10 MG Examination Physical Examination Gen - no pallor, no icterus, no cyanosis, no clubbing, no LAD, no edema . Skin - Patients skin is warm and dry HEENT - normocephalic, atraumatic, dry mucous membranes. Neck - full ROM, no LAD, no JVD Pulmonary - B/L vesicular breath sounds. no crackles , no wheezing, no stridor. cardiovascular - normal S1,S2 heard. no murmurs heard. peripheral pulses normal radial 2+, pedal 2+. capillary refill normal <2 secs. GI - soft abdomen with mild tenderness to palpation in the periumbilical region . no hepatospleenomegaly. Bowel sounds normoactive Neurological - Patient is A/O X 3 . Bilateral upper extremity strength 5/5, bilateral lower extremity strength 5/5, no facial droop, normal speech, no tremor, no sensory deficiets. laboratory and microbiology Laboratory Tests 07/21/24 05:42 Test 07/21/24 05:42 Range/Units Serum Glucose 175 H 74-106 mg/dL Labs and/or images reviewed: Labs reviewed by me, Image(s) reviewed by me Problem List/Assessment/Plan Problem List/Assessment/Plan Assessment and plan # Acute intractable abdominal pain # Acute intractable nausea and vomiting # Acute gastroenteritis likely d/t infectious etiology # Leukocytosis with left shift # SIRS negative - CT abdomen pelvis without contrast showed no acute intraabdominal abnormalities - stool occult blood and stool WBC negative - IV fluids - ceftriaxone and metronidazole IV - Zofran 4mg prn and prochlorperazine 10mg prn for nausea/vomiting - Clear liquid diet - Dicyclomine prn for crampy abdominal pain # FELIBERTO on CKD likely prerenal hemodynamically mediated - serum creatinine decreasing - patient had multiple episodes of vomiting - On IV fluids # H/o hypertension Currently blood pressure slightly low, held home medications - on hydralazine prn if SBP>150mmhg # Uncontrolled T2DM - Hba1c- 6.8% - On mild ISS - At home patient is on insulin 30U hs, started on 18U hs in hospital # Anemia, normocytic normochromic - monitor H&H - Retic count pending -no signs/symptoms of active bleeding Goals of care discussed for 20 minutes; full code Plan discussed with Plan discussed with: Patient (RN ( Azucena )), Other (Nurse) My Orders My Orders Orders - RIAN JARRELL RESIDENT Procedure Category Date Status Time Urine Sodium LAB 07/21/24 Logged 07:32 Urine LAB 07/21/24 Logged Protein/Creatinine Npo (Nothing By DIET 07/21/24 Transmitted Mouth) Diet Breakfast Addendum Addendum Addendum I was physically present for the turner portions of the service provided to patient by THE RESIDENT. I have reviewed the documentation, discussed the case with resident and agree with the resident's documentation except as noted. Also the patient's clinical case was discussed with the patient's nurse. This medical document was created using an electronic medical record system with computerized dictation system. Although this document has been carefully reviewed, there might still be some phonetic and typographical errors. These areas are purely typographical due to imperfections of the software programs, and do not reflect any compromise in the patient's medical care. Late signature. Date of Service: Jul 21, 2024 Billing Provider: CORTNEY WORRELL MD Common Visit Codes: 78725-[id number] INP/OBS CARE(HIGH) Secondary Visit Codes: 64158-[id number] CARE PLAN 30 MINUTES (20 minutes) RIAN JARRELL RESIDENT Jul 21, 2024 10:48 CORTNEY WORRELL MD Jul 23, 2024 06:01
[2024-07-21] MEDS: DICYCLOMINE HCL (10MG/ML) 2 ML AMPULE IM ONE (11:24)
[2024-07-21] MEDS ORDERED: LINA5TAB PO (15:27)
[2024-07-21] MEDS ORDERED: ATOR10TA52 PO (15:27)
[2024-07-21] MEDS ORDERED: LACT10SO59 PO (15:27)
[2024-07-21] MEDS ORDERED: HYDR50TA47 PO (15:27)
[2024-07-21] MEDS ORDERED: INSU1INJ14 SC (15:27)
[2024-07-21] MEDS ORDERED: LOSA-535 PO (15:27)
[2024-07-21] MEDS ORDERED: SEMA2INJ3 SC (15:27)
[2024-07-21] MEDS ORDERED: METF-371 PO (15:27)
[2024-07-21] MEDS ORDERED: HYDR-4795 PO (15:27)
[2024-07-21] MEDS ORDERED: DICYCLOMINE HCL 10 MG CAP PO PRN (22:00)
[2024-07-21] MEDS: INSULIN LANTUS (GLARGINE) 1 /0.01ml (100units/ml) SC SCH (23:00)
[2024-07-21] MEDS: cefTRIAXone 1GM/50ML D5W 50 ML IV SCH (23:30)
[2024-07-22 05:00] VITALS: BP 130/72; PULSE 78; RESP 18; TEMP 98.3; O2SAT 93
[2024-07-22 05:50] LABS: Basophils # (auto) 0.1 10 ^3/uL (0-0.2); Basophils % (auto) 0.5 % (0.0-2.0); Eosinophils # (auto) 0 10 ^3/uL (0-0.8); Eosinophils % (auto) 0.1 % (0.0-7.0); Lymphocytes # (auto) 1.2 10 ^3/uL (0.4-5.4); Lymphocytes % (auto) 7.7 % (10.0-50.0); Mean Corpuscular Hemoglobin 28.6 pg (28.0-32.0); Mean Corpuscular Hgb Conc. 32.1 g/dL (32.0-36.0); Mean Corpuscular Volume 88.9 fL (80.0-100.0); Monocytes # (auto) 0.7 10 ^3/uL (0-1.3); Monocytes % (auto) 4.8 % (0.0-12.0); Neutrophils # (auto) 13.3 10 ^3/uL (1.6-8.6); Neutrophils % (auto) 86.9 % (37.0-80.0); Platelet Count (auto) 280 10^3/uL (140-450); Red Blood Cells 3.49 10^6/uL (4.0-5.20); Red Cell Distribution Width 14.8 % (11.8-14.3); White Blood Cell 15.3 10^3/uL (4.4-10.8)
[2024-07-22 06:06] LABS: Chloride 106 mmol/L (98-107); Potassium 4.1 mmol/L (3.5-5.1); Sodium 141 mmol/L (136-145)
[2024-07-22 06:07] LABS: Anion Gap 14 (5-15); Carbon Dioxide 21 mmol/L (20-31)
[2024-07-22 06:08] LABS: Calcium 10.1 mg/dL (8.7-10.4)
[2024-07-22 06:13] LABS: BUN/Creatinine Ratio 13.9 (10.0-20.0); Blood Urea Nitrogen 20 mg/dL (9-23); Glucose 172 mg/dL (74-106)
[2024-07-22 06:15] LABS: Phosphorus 2.8 mg/dL (2.4-5.1)
[2024-07-22 08:00] VITALS: PULSE 93; RESP 20; O2SAT 94
[2024-07-22 09:00] VITALS: BP 117/65; PULSE 93; RESP 20; TEMP 98.8; O2SAT 94
[2024-07-22] MEDS ORDERED: AUG875T PO (11:56)
[2024-07-22] MEDS ORDERED: ZOFR4T PO (11:56)
[2024-07-22] MEDS ORDERED: DICY10CA PO (11:56)
[2024-07-22 12:30] VITALS: BP 117/65; PULSE 93; RESP 20; TEMP 98.8; O2SAT 94
--- NOTE | 2024-07-22 12:44 | DVHDSRES ---
Discharge Summary Date of Admission Resident Creating Document: OSORIO BRUNNER RESIDENT Jul 20, 2024 at 20:53 Date of Discharge: Jul 22, 2024 Admitting Diagnosis Abdominal pain with nausea and vomiting Labs/Diagnostic Data: Laboratory Results Test 07/22/24 11:04 07/22/24 05:35 07/21/24 11:00 07/21/24 08:20 POC Glucose 186 mg/dl (70-106) White Blood Count 15.3 10^3/uL (4.4-10.8) Red Blood Count 3.49 10^6/uL (4.0-5.20) Hemoglobin 10.0 g/dL (12.2-16.2) Hematocrit 31.0 % (36.0-46.0) Mean Corpuscular Volume 88.9 fL (80.0-100.0) Mean Corpuscular Hemoglobin 28.6 pg (28.0-32.0) Mean Corpuscular Hemoglobin Concent 32.1 g/dL (32.0-36.0) Red Cell Distribution Width 14.8 % (11.8-14.3) Platelet Count 280 10^3/uL (140-450) Mean Platelet Volume 7.3 fL (6.9-10.8) Neutrophils (%) (Auto) 86.9 % (37.0-80.0) Lymphocytes (%) (Auto) 7.7 % (10.0-50.0) Monocytes (%) (Auto) 4.8 % (0.0-12.0) Eosinophils (%) (Auto) 0.1 % (0.0-7.0) Basophils (%) (Auto) 0.5 % (0.0-2.0) Neutrophils # (Auto) 13.3 10 ^3/uL (1.6-8.6) Lymphocytes # (Auto) 1.2 10 ^3/uL (0.4-5.4) Monocytes # (Auto) 0.7 10 ^3/uL (0-1.3) Eosinophils # (Auto) 0 10 ^3/uL (0-0.8) Basophils # (Auto) 0.1 10 ^3/uL (0-0.2) Nucleated Red Blood Cells 0.0 % Reticulocyte Count (auto) 1.56 % (0.5-1.5) Sodium Level 141 mmol/L (136-145) Potassium Level 4.1 mmol/L (3.5-5.1) Chloride Level 106 mmol/L (98-107) Carbon Dioxide Level 21 mmol/L (20-31) Anion Gap 14 (5-15) Blood Urea Nitrogen 20 mg/dL (9-23) Creatinine 1.44 mg/dL (0.550-1.02) Glomerular Filtration Rate Calc 43 mL/min (>90) BUN/Creatinine Ratio 13.9 (10.0-20.0) Serum Glucose 172 mg/dL (74-106) Calcium Level 10.1 mg/dL (8.7-10.4) Phosphorus Level 2.8 mg/dL (2.4-5.1) Lactate Dehydrogenase 189 U/L (120-246) Stool Occult Blood Negative (Negative) Stool Occult Blood Sample #3 (Negative) Stool for White Cells None seen Test 07/21/24 05:42 07/20/24 21:16 07/20/24 19:17 Hemoglobin A1c 6.8 % A1C (<5.7) Lactic Acid Level 1.0 mmol/L (0.4-2.0) Magnesium Level 1.7 mg/dL (1.6-2.6) Total Bilirubin 0.5 mg/dL (0.2-1.0) Aspartate Amino Transferase (AST) 12 U/L (13-40) Alanine Aminotransferase (ALT) 16 U/L (7-40) Alkaline Phosphatase 73 U/L (46-116) Total Protein 7.1 g/dL (5.7-8.2) Albumin 4.7 g/dL (3.2-4.8) Parathyroid Hormone (Intact) 121.0 pg/mL (18.4-80.1) Urine Color Yellow (Yellow) Urine Clarity Clear (Clear) Urine pH 5.5 (5.0-9.0) Urine Specific [place] 1.019 (1.001-1.035) Urine Protein Negative (Negative) Urine Ketones Negative (Negative) Urine Blood Negative /uL (Negative) Urine Nitrite Negative (Negative) Urine Bilirubin Negative (Negative) Urine Urobilinogen Normal mg/dL (Negative) Urine Leukocyte Esterase Negative /uL (Negative) Urine RBC 3 /hpf (0 - 4) Urine WBC 1 /hpf (0 - 5) Urine Squamous Epithelial Cells Few /hpf (<5) Urine Bacteria None seen /hpf (None Seen) Urine Hyaline Casts Few /lpf (0 - 2) Urine Glucose Normal mg/dL (Normal) Lipase 46 U/L (12-53) Other Laboratory Tests 07/22/24 05:35 Brief Hx & Hospital Course: Patient is a 53 yo male with a past medical history of T2DM, HTN, osteoarthritis of the hip presented to the ED with chief complaint Acute abdominal pain, nausea and vomiting for a few hours before presentation. patient reported that she was at a family gathering and had food following which after about 1-1.5 hrs he started having shaking, diffuse abdominal pain with nausea and vomiting. reported eating turkey, shrimps made at home. patient reports about 3-4 episodes vomiting which mostly had undigested food she ate, no blood in vomitus, last 2 episodes of vomiting were yellowish in color. patient does not report of fever, diarrhoea, rash, no motor or sensory deficiets. Patient on admission had stable vitals with blood pressure and heart rate WNL. CBC showed elevated WBC count with left shift and BMP showed Increased creatine with acutely low GFR. CT abdomen pelvis without contrast was done which showed No evidence of acute abdominopelvic abnormalities.Constipation.Severe degenerative changes of bilateral hips.Large fat containing umbilical hernia. Past medical history : as per HPI Past surgical history: Cholecystectomy, Social history: Lives with the family and denies smoking, alcohol, drug use Home medications: Tradjenta 5mg daily, losartan 100 mg qd, hydralazine 50 bid, insulin 30 U hs On initial assessment, patient seen and examined at the bedside. Patient alert and oriented x4. Patient reported diffuse crampy abdominal pain severe 7/10 intensity, nausea with dry heaving. Vitals - BP stable, pulse regular rate and rhythm. passed stool, regular in consistency, no gross blood in stool. Stool sent for culture, WBC and stool occult blood. WBC came down and serum creatinine coming down. CT abdomen revealed constipation, no acute abnormality. On subsequent assessment, patient has had significant clinical improvement from admission, she denied any significant chest pain, shortness of breath, abdominal pain, nausea, vomiting, dizziness, she is currently tolerating diet, ambulatory. Physical examination on the day of discharge: General: Awake, alert, comfortable appearing, in no acute distress. HEENT: Head is normocephalic and atraumatic. Pupils are equal, round, and reactive to light. Extraocular muscles are intact. No nasal discharge. No facial trauma. Intraoral exam shows moist mucous membranes with no tonsillar enlargement or exudate. Neck: Supple with no cervical lymphadenopathy No meningismus. No goiter. Heart: Regular rate without murmur, rub, or gallop. Lungs: Equal breath sounds bilaterally with no wheezing, rales, or rhonchi. There is no chest wall tenderness or instability. Abdomen: No external sign of injury. Bowel sounds are present. Abdomen is soft, nontender. No rebound, no guarding, no rigidity. There are no palpable masses. There is no flank pain on exam. Extremities: Strong peripheral pulses. There is no clubbing, no cyanosis, and no edema. Skin: No rash. Neurologic: Cranial nerves II-XII intact without motor, sensory, or cerebellar deficit, no asterixis. Discharge plan: Patient will be DC home and continue home medications as prescribed. She will continue taking Augmentin 875 mg p.o. b.i.d. for five days. Continue taking Zofran p.r.n.. Continue taking dicyclomine p.o. p.r.n.. Scheduled follow-up follow up with the discharge clinic this upcoming Wednesday with Dr. Regalado. We extensively explained signs of alarm to the patient and today returned to the ER if any. Patient verbalized understanding agreed with this plan, we spent over 35 minutes explained the plan. Case was discussed with Dr. Worrell Operations or Procedures [place] [id number] Ph: [phone] DIAGNOSTIC IMAGING Diagnostic Imaging Report : [id number] Signed PATIENT: MIGUEL ANGEL VARGASACCT: [id number] UNIT: [id number] : 1970 LOC: ER ROOM / BED: / AGE / SEX: 53 / F ADM STATUS: REG ER SERVICE 08 ORDERING PHYSICIAN: KARIN BURR MD PROCEDURE(s): ABPL - CT AB PEL WO CON-NO ORAL OR IV REASON: pain ORDER NUMBER(s): [id number], ACCESSION NUMBER(s): [id number] Exam: CT CT AB PEL WO CON-NO ORAL OR IV History: pain Comparison Study: 03/09/2024 TECHNIQUE: Multidetector CT of the abdomen and pelvis without contrast. Axial, coronal and sagittal multiplanar reformats were obtained from the axial data set by the technologist. Radiation Dose Information: CT Dose: CTDI volume is 24.43 mGy. Dose-length product is 1442.01 mGy*cm FINDINGS: Bibasilar atelectasis. Mild cardiomegaly. Mild hepatomegaly. Otherwise, liver, spleen, pancreas and adrenal glands are unremarkable. Status post cholecystectomy. Kidneys, ureters and urinary bladder are unremarkable. Uterus and adnexa are unremarkable. Stomach is unremarkable. Small bowel loops unremarkable. Appendix is unremarkable. Moderate 2 large amount of fecal material within the colon. No evidence of intraperitoneal free air or free fluid. No evidence of aortic aneurysm. [id number] atherosclerotic calcification of the distal aorta and bilateral iliac arteries. No significant lymphadenopathy. Minimal soft tissue edema. Large fat containing umbilical hernia. Severe degenerative changes bilateral hips with chronic fracture deformity of the right hip. Calcified granulomas of the bilateral gluteal regions. IMPRESSION: No evidence of acute abdominopelvic abnormalities. Constipation. Severe degenerative changes of bilateral hips. Large fat containing umbilical hernia. ATED BY: DALILA SANTANA DO DICTATED DATE/TIME: 07/20/241905 SIGNED BY: DALILA SANTANA DO SIGNED DATE/TIME: 07/20/241905 CC: Condition at Discharge: Stable Final Diagnosis/Problems List # Acute intractable abdominal pain # Acute intractable nausea and vomiting # Sepsis due to acute gastroenteritis likely d/t infectious etiology # Leukocytosis with left shift # FELIBERTO on CKD likely prerenal hemodynamically mediated # H/o hypertension # Uncontrolled T2DM # Anemia, normocytic normochromic Discharge Disposition: Home Discharge Instruct/Medications Diet: Regular Activity: No Restrictions, As Tolerated Follow Up/Referral: f/u with Dr. Regalado in d/c clinic Wednesday July 24, 2024 Medications: continue home meds as prescribed Discharge Statement: "Patient was advised to return to the ER or call 911 if any headaches, dizziness, shortness of breath, chest pain, abdominal pain, bleeding, fevers, or worsening of medical condition. Patient was counseled about treatment plan, medications, possible side effects, patientverbalized understanding. All questions were answered to the best of my ability. This discharge took greater then 30 minutes in planning, reviewing documentation, counseling the patient, and discussing with other team members." ASSESSMENT ASSESSMENT Assessment gastroenteritis Addendum Addendum Addendum I was physically present for the turner portions of the service provided to patient by THE RESIDENT. I have reviewed the documentation, discussed the case with resident and agree with the resident's documentation except as noted. Also the patient's clinical case was discussed with the patient's nurse. This medical document was created using an electronic medical record system with computerized dictation system. Although this document has been carefully reviewed, there might still be some phonetic and typographical errors. These areas are purely typographical due to imperfections of the software programs, and do not reflect any compromise in the patient's medical care. Late signature. Date of Service: Jul 22, 2024 Billing Provider: CORTNEY WORRELL MD Common Visit Codes: 27510-FOA/OBS DISCH DAY >30min OSORIO BRUNNER RESIDENT Jul 22, 2024 12:44 CORTNEY WORRELL MD Jul 23, 2024 06:04
[2024-07-22 13:01] VITALS: BP 126/87; PULSE 104; RESP 18; TEMP 98.7; O2SAT 95
== END 2024-07-22 13:32 | disposition home or self-care (01) | DRG 871 ==
LOC: EDBD 18:04 → ER 18:04 → OVERFLOW 20:53 → EAST 23:30
PROVIDERS: ADMIT Internal Medicine; ATTEND Internal Medicine
DX: A41.9 Sepsis, unspecified organism (principal); N17.0 Acute kidney failure with tubular necrosis; A04.9 Bacterial intestinal infection, unspecified; I12.9 Hypertensive chronic kidney disease with stage 1 through stage 4 chronic kidney disease, or unspecified chronic kidney disease; N18.31 Chronic kidney disease, stage 3a; E66.9 Obesity, unspecified; E11.22 Type 2 diabetes mellitus with diabetic chronic kidney disease; D64.9 Anemia, unspecified; Z68.38 Body mass index [BMI] 38.0-38.9, adult; Z83.3 Family history of diabetes mellitus; Z90.49 Acquired absence of other specified parts of digestive tract; Z96.642 Presence of left artificial hip joint; Z87.442 Personal history of urinary calculi; Z79.4 Long term (current) use of insulin; Z79.899 Other long term (current) drug therapy
CPT/HCPCS: 36415; 80048; 82962; 83615; 84100; 85025; 85045; 87045; 87427; 96361; 96374; 96375; G0378; J1815; J2470; J3490